=== PATIENT | male | born 1990 | race Caucasian/White ===

== ENCOUNTER 2025-01-13 19:20 | Emergency (ER) | payer MEDICAID, OTHER ==
[~2025-01-13] VITALS: Ht 182.9 cm; Wt 88.6 kg
[~2025-01-13 19:20] MED LIST: CEPH-558 PO; DIVA-153 PO; HALO5TAB23 PO; OLAN10TA74 PO
[2025-01-13 19:39] VITALS: TEMP 98
[2025-01-13 20:48] VITALS: BP 118/86; PULSE 94; RESP 15; O2SAT 96
== END 2025-01-13 23:03 | disposition home or self-care (01) ==
LOC: EMS 19:20
DX: F10.129 Alcohol abuse with intoxication, unspecified (principal); F19.10 Other psychoactive substance abuse, uncomplicated; F12.90 Cannabis use, unspecified, uncomplicated; F20.9 Schizophrenia, unspecified; F31.9 Bipolar disorder, unspecified; Z79.899 Other long term (current) drug therapy; Y90.9 Presence of alcohol in blood, level not specified
CPT/HCPCS: 99283